=== PATIENT | female | born 1970 | race Caucasian/White ===

== ENCOUNTER 2017-09-05 09:27 | Emergency (ER) | payer OTHER ==
[2017-09-05 09:33] VITALS: BP 115/72; PULSE 90; TEMP 98.5; BMI 22.4
--- NOTE | 2017-09-05 10:02 | PDOC ---
History of Present Illness - General Chief Complaint: Sore Throat Stated Complaint: SORE THROAT Time Seen by Provider: 09/05/17 09:50 History Source: Patient Exam Limitations: No Limitations - History of Present Illness Initial Comments: 09/05/17 09:58 Patient came to emergency department for evaluation of cough, body aches, flulike symptoms for approximately 5-6 days. States had chills and fevers, had sore throat pain and nasal drainage. Has been using [id number] medications with minimal resolved. Timing/Duration: 1 week Severity: mild, moderate Modifying Factors: improves with: cold therapy, medication Associated Symptoms: reports: cough, fever/chills, headaches, malaise Past History - Travel Traveled outside of the country in the last 30 days: No Close contact w/someone who was outside of country & ill: No - Past Medical History Allergies/Adverse Reactions: Allergies Allergy/AdvReac Type Severity Reaction Status Date / Time No Known Allergies Allergy Verified 09/05/17 09:33 Home Medications: Ambulatory Orders Ibuprofen [Motrin -] 400 mg PO QID PRN #28 tablet 09/05/17 COPD: No - Immunization History Td Vaccination: No TDAP Vaccination: No Immunization Up to Date: No - Suicide/Smoking/Psychosocial Hx Smoking Status: No Smoking History: Never smoked Have you smoked in the past 12 months: No Number of Cigarettes Smoked Daily: 0 Hx Alcohol Use: No Drug/Substance Use Hx: No Review of Systems - Review of Systems Able to Perform ROS?: Yes Is the patient limited [place] proficient: Yes Constitutional: Yes: Symptoms Reported, See HPI, Chills, Fever, Loss of Appetite , Malaise HEENTM: Yes: Symptoms Reported, See HPI, Nose Congestion, Throat Pain Respiratory: Yes: Symptoms reported, See HPI, Cough (moist nonproductive) Musculoskeletal: Yes: Symptoms Reported, Muscle Pain Neurological: Yes: Symptoms reported, See HPI, Headache (frontal) All Other Systems: Reviewed and Negative *Physical Exam - Vital Signs Last Vital Signs Temp Pulse Resp BP Pulse Ox 98.5 F 90 18 115/72 99 09/05/17 09:30 09/05/17 09:30 09/05/17 09:30 09/05/17 09:30 09/05/17 09:30 - Physical Exam General Appearance: Yes: Nourished, Appropriately Dressed, Apparent Distress, Mild Distress HEENT: positive: JACKIE (glassi), TMs Normal (congested but landmarks easily visualized), Pharynx Normal, Rhinorrhea, Sinus Tenderness. negative: Pharyngeal Erythema Neck: positive: Supple, Lymphadenopathy (R), Lymphadenopathy (L) Respiratory/Chest: positive: Lungs Clear (course but clear, no wheezing or retractions), Normal Breath Sounds Extremity: positive: Normal Capillary Refill, Normal Inspection, Normal Range of Motion Integumentary: positive: Dry, Warm, Pale Neurologic: positive: cashier supervisor II-XII NML intact, Fully Oriented, Alert, Normal Mood/ Affect Medical Decision Making - Medical Decision Making 09/05/17 10:01 Upper respiratory infection, probable influenza but outside window for Tamiflu treatment. Discussed with patient to continue conservative measures *DC/Admit/Observation/Transfer Diagnosis at time of Disposition: Upper respiratory infection Qualifiers: URI type: unspecified URI Qualified Code(s): J06.9 - Acute upper respiratory infection, unspecified - Discharge Dispostion Disposition: HOME Condition at time of disposition: Stable Admit: No - Referrals Referrals: Gricelda Martinez [Primary Care Provider] - - Patient Instructions Printed Discharge Instructions: DI for Viral Upper Respiratory Infection -- Adult Additional Instructions: Rest, drink lots of fluids: Teas, water, soups, Pedialyte Saltwater gargles Steamy showers/seem to face break up mucus Old-fashioned treatments help! Avoid contact with others until fevers and cough resolved as this is very contagious Lots of handwashing and good hygiene Continue [id number] medications for symptomatic relief Tylenol or Motrin for fever and pain Followup with private physician in one to 2 days as needed or if worsening Return to emergency department for worsened symptoms, fevers, dehydration Influenza takes between 5 and 7 days for resolution To not participate in any activity, work, or school until fevers and cough are gone for at least one day - Post Discharge Activity
== END 2017-09-05 10:07 | disposition home or self-care (01) ==
LOC: JERFT 09:27
DX: J06.9 Acute upper respiratory infection, unspecified (principal)
CPT/HCPCS: 99281-25

== ENCOUNTER 2024-03-22 15:29 | Emergency (ER) | payer OTHER ==
[2024-03-22 16:18] VITALS: BP 120/70; PULSE 70; RESP 20; TEMP 99; BMI 22.4
[2024-03-22] MEDS ORDERED: KETOROLAC TROMETHAMINE 30 MG/1 ML VIAL ONE (17:09)
[2024-03-22] MEDS ORDERED: METHOCARBAMOL 500 MG TABLET ONE (17:09)
[2024-03-22] MEDS: METHOCARBAMOL 750 MG TABLET PO ONE (17:15)
[2024-03-22] MEDS: KETOROLAC TROMETHAMINE 30 MG/1 ML VIAL IM ONE (17:15)
== END 2024-03-22 19:00 | disposition home or self-care (01) ==
LOC: FER 15:29
PROC: 3E0133Z Introduction of Anti-inflammatory into Subcutaneous Tissue, Percutaneous Approach (ICD-10-PCS; principal; 2024-03-22)
DX: S39.012A Strain of muscle, fascia and tendon of lower back, initial encounter (principal); X58.XXXA Exposure to other specified factors, initial encounter
CPT/HCPCS: 96372; 99284-25